=== PATIENT | female | born 1970 | race Hispanic/Latino ===

== ENCOUNTER → 2020-10-05 | Outpatient (CLI) | payer MEDICARE ==
[~2020-10-05] MED LIST: BISA5TAB12 PO; HYDR-4068 PO; PROM25TA7 PO
== END | disposition home or self-care (01) ==
LOC: RAH 09:27
PROVIDERS: ATTEND Family Medicine
DX: R05 Cough (principal)
CPT/HCPCS: 71046

== ENCOUNTER → 2020-10-16 | Outpatient (CLI) | payer OTHER | END | disposition home or self-care (01) | LOC: OIH 17:18 | PROVIDERS: ATTEND Family Medicine | DX: Z13.6 Encounter for screening for cardiovascular disorders (principal) | CPT/HCPCS: 75571 ==

== ENCOUNTER → 2021-08-17 | Outpatient (CLI) | payer OTHER | END | disposition home or self-care (01) | LOC: OIH 08:04 | PROVIDERS: ATTEND Family Medicine | DX: Z13.6 Encounter for screening for cardiovascular disorders (principal) | CPT/HCPCS: 75571 ==

== ENCOUNTER → 2021-08-22 | Outpatient (CLI) | payer MEDICARE | END | disposition home or self-care (01) | LOC: RAH 08:51 | PROVIDERS: ATTEND Family Medicine | DX: K21.9 Gastro-esophageal reflux disease without esophagitis (principal); Z98.84 Bariatric surgery status | CPT/HCPCS: 74240 ==

== ENCOUNTER → 2023-10-21 | Outpatient (CLI) | payer MEDICARE ==
[~2023-10-21] MED LIST changes: +BISA-151 PO; -BISA5TAB12 PO
== END | disposition home or self-care (01) ==
LOC: RAH 09:46
PROVIDERS: ATTEND Internal Medicine Gastroenterology
DX: K21.9 Gastro-esophageal reflux disease without esophagitis (principal); R10.13 Epigastric pain; Z98.890 Other specified postprocedural states
CPT/HCPCS: 74240

== ENCOUNTER 2024-01-14 08:05 | Day surgery (SDC) | payer MEDICARE ==
[~2024-01-14] VITALS: Ht 149.9 cm; Wt 81.6 kg
[2024-01-14] VITALS (15 sets, daily range): BP systolic 102–136; BP diastolic 67–83; PULSE 47–81; RESP 10–18
[~2024-01-14 08:05] MED LIST changes: +OMEP40CA21 PO; +PANT20TA18 PO
[2024-01-14] MEDS ORDERED: FLUT1BLS3 IH (08:44)
[2024-01-14] MEDS: 0.9%NACL 1000ML 1,000 ML IV ONE (08:51)
[2024-01-14] MEDS ORDERED: PROPOFOL 10 MG/ML 20ML VIAL IV ONE ×2 (10:16→10:22)
== END 2024-01-14 11:55 | disposition home or self-care (01) ==
LOC: DAH 08:05
PROVIDERS: ATTEND Surgery
DX: K21.00 Gastro-esophageal reflux disease with esophagitis, without bleeding (principal); K29.50 Unspecified chronic gastritis without bleeding; M79.7 Fibromyalgia; R10.13 Epigastric pain; K22.89 Other specified disease of esophagus; K44.9 Diaphragmatic hernia without obstruction or gangrene; E66.01 Morbid (severe) obesity due to excess calories; F41.9 Anxiety disorder, unspecified; Z68.34 Body mass index [BMI] 34.0-34.9, adult; K21.9 Gastro-esophageal reflux disease without esophagitis; Z86.010 Personal history of colon polyps; Z90.710 Acquired absence of both cervix and uterus; Z98.890 Other specified postprocedural states; Z98.84 Bariatric surgery status; Z98.0 Intestinal bypass and anastomosis status; Z79.899 Other long term (current) drug therapy
CPT/HCPCS: 43239; 82948 ×3; J7030 ×2; J2704 ×2; A4620; A4215 ×2; A4223; A4657; A4222; A4221; A4663; A4606; J3490

== ENCOUNTER 2024-08-25 05:49 | Observation (INO) | payer MEDICARE ==
[2024-08-22 14:35] LABS: BASOPHILS # (AUTO) 0.02 K/uL (0.00-0.20); BASOPHILS % (AUTO) 0.4 % (0.0-5.0); EOSINOPHILS # (AUTO) 0.05 K/uL (0.00-0.70); HEMATOCRIT 40.4 % (36-48); IMMATURE GRANULOCYTE ABSOLUTE 0.01 K/uL (0-1); LYMPHOCYTES # (AUTO) 0.8 K/uL (1.0-4.8); MEAN CORPUSCULAR HEMOGLOBIN 28.9 pg (27.0-33.0); MEAN CORPUSCULAR HGB CONC 33.9 g/dL (32.0-36.0); MEAN CORPUSCULAR VOLUME 85.2 fL (79-99); MONOCYTES # (AUTO) 0.4 K/uL (0.1-1.0); MONOCYTES % (AUTO) 7.3 % (3.0-13.0); NEUTROPHILS # (AUTO) 3.9 K/uL (1.8-7.7); NEUTROPHILS % (AUTO) 75.1 % (40.0-77.0); PLATELET COUNT (AUTO) 197 K/uL (130-400); RED BLOOD CELL COUNT(AUTO) 4.74 MIL/uL (4.00-5.50); WHITE BLOOD COUNT (AUTO) 5.2 K/uL (4.8-10.8)
[2024-08-22 14:50] LABS: INR <= 0.93 (0.85-1.15); PROTHROMBIN TIME 10.4 SEC (9.6-11.6)
[2024-08-22 14:51] LABS: PARTIAL THROMBOPLASTIN TIME 26.5 SEC (26.3-35.5)
[2024-08-22 14:52] LABS: CREATININE 0.7 mg/dL (0.5-1.0); POTASSIUM 4.1 mmol/L (3.5-5.1)
[2024-08-22 14:55] VITALS: BP 128/79; PULSE 79; RESP 14; TEMP 97.9
--- NOTE | 2024-08-22 15:14 | EKG ---
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
[2024-08-25] VITALS (33 sets, daily range): BP systolic 104–147; BP diastolic 55–82; PULSE 61–109; RESP 13–20; TEMP 96.9–98.6; O2SAT 95–96
[~2024-08-25] VITALS: Ht 149.9 cm; Wt 73.2 kg
[2024-08-25] MEDS: INDOCYANINE GREEN 25 MG VIAL IJ ONE
[~2024-08-25 05:49] MED LIST changes: -BISA-151 PO; +DICY20TA3 PO; +ESOM40CA66 PO; +FAMO40TA7 PO; +FLUT1BLS3 IH; +GLUCOSE PO; -HYDR-4068 PO; +IBUP-2070 PO; +LINA145C PO; -OMEP40CA21 PO; +ONDA-243 PO; -PANT20TA18 PO; +PHEN-308 PO; -PROM25TA7 PO; +SERT-439 PO; +SUCR1TAB2 PO; +TOPI25TA42 PO
[2024-08-25] MEDS: FAMOTIDINE 20MG VIAL IV ONE (07:12)
[2024-08-25] MEDS: acetaMINOPHEN 100 ML ONE (07:12)
[2024-08-25] MEDS ORDERED: ketaMINE 50MG/ML SYRINGE 50 MG/ML DISP.SYRIN ONE (07:16)
[2024-08-25] MEDS: IpraTROPium/alBUTERol SULFATE 3 ML SOLUTION IH ONE (07:19)
[2024-08-25] MEDS ORDERED: proPOFol 10 MG/ML 20ML VIAL IV ONE (07:25)
[2024-08-25] MEDS ORDERED: FENTanyl CITRate PF 50 MCG/1 ML 2ML VIAL ONE (07:25)
[2024-08-25] MEDS ORDERED: rocuRONium bROMide 10MG/1ML 5ML VL ONE (07:25)
[2024-08-25] MEDS ORDERED: LIDOCAINE PF 100MG/5ML (2%) SYRINGE 5ML ONE (07:25)
[2024-08-25] MEDS ORDERED: dexaMETHasone SOD PHOSPHATE 10MG/ML 1ML VIAL ONE (08:22)
[2024-08-25] MEDS ORDERED: ondanSETRON 4MG INJ ONE (08:22)
[2024-08-25] MEDS: ceFAZolin SODIUM 2 GM VIAL ONE (08:25)
[2024-08-25] MEDS ORDERED: phenylEPHRINE HCL 10 MG/ML 1ML VIAL IV ONE (08:27)
[2024-08-25] MEDS: BUPIvacaine/PF 0.5% 30ML VIAL ONE (08:40)
[2024-08-25] MEDS ORDERED: MIDAZOLAM HCL 1 MG/ML 2ML VIAL ONE (08:48)
[2024-08-25] MEDS ORDERED: GLYCOPYRROLATE 0.2 MG/ML 5 ML VIAL ONE (09:12)
[2024-08-25] MEDS ORDERED: NEOSTIGMINE METHYLSULFATE 1MG/ML IV ONE (09:12)
--- NOTE | 2024-08-25 10:15 | OP ---
Operative Note: DATE OF PROCEDURE: 08/25/24 SURGEON: RONDA NELSON MD TALENT BUYER: Gordo Nelson MD p.a. C ANESTHESIA: General and local ANESTHESIOLOGIST/SHIPPING LEAD: [facility] [place] team PREOPERATIVE DIAGNOSIS: Nausea, symptomatic hiatal hernia, gastric bypass anatomy POSTOPERATIVE DIAGNOSIS: As above. Nodular and shrunken appearing liver re quiring liver biopsy for further diagnosis. Extensive intra-abdominal adhesions requiring adhesiolysis for 1 hour prior to proceeding with the case. SYNOPSIS: Extensive lysis of adhesions, liver biopsy, hiatal hernia repair with mesh reinforcement performed without incident PROCEDURE: 1. Robotic assisted hiatal hernia repair with mesh reinforcement 2. Extensive lysis of adhesions greater than 1 hour not typical for this case 3. Core needle liver biopsy 4. EGD ESTIMATED BLOOD LOSS: Minimal, less than 30 cc INDICATIONS: As above DESCRIPTION OF PROCEDURE: After standard precautions and preparations were undertaken a Veress needle and optical trocar were used to enter the abdominal cavity. All other instruments were placed under direct vision. The robotic system was docked in the standard fashion. In order to clear space for all the trocars we had to lyse adhesions. The patient had diffuse intra-abdominal adhesions the required approximately 1 hour of lysis prior to proceeding with the remainder of the case. Patient also had a shrunken nodular appearing liver requiring liver biopsy for further diagnosis. The core needle liver biopsy was performed and monopolar cautery was used to create hemostasis. We eventually got to the main portion of the case which involved identification and repair of the hiatal hernia. We opened pars flaccida identifying the right juan m of the diaphragm. From there we are able to enter into the mediastinum through a nearly avascular plane. This dissection was carried circumferentially to mobilize the distal esophagus and the gastric pouch. We cleared the right and left crura of unwanted attachments down to the crossing fibers in the retroesophageal space. We performed hernia repair by suturing the right and left crura back in reapproximation with the care taken not to over tighten. This was then reinforced with a mesh placement. The mesh was cut into a horseshoe shape and placed as an overlay. It was sutured in place to prevent mesh migration and maximize tissue contact with the mesh. Throughout the case my partner was utilizing the EGD scope to verify appropriate anatomic landmarks including the GE junction. By the end of our dissection and hernia repair the GE junction was resting several cm below the hiatus in the peritoneal cavity without any tension. At the end of the case all instrument counts were verified as correct including needles and sponges. The patient tolerated the procedure well and was prepared for extubation and transferred to PACU in stable condition. RONDA NELSON MD Aug 25, 2024 10:15
--- NOTE | 2024-08-25 10:15 | PN ---
GENERAL SURGERY PROGRESS NOTE Date/Time Patient Seen: [ 08/25/2024, 1015] Problem List: [ ] Interval History: [Postop day 0. Pain tolerable with the p.r.n. medication. ] Current Medications Medications (Trade) Dose Ordered Sig/Polina Route Start Time Stop Time Status Last Admin Dose Admin Enoxaparin Sodium (Lovenox) 30 mg Q12H SQ 08/25/24 10:30 09/24/24 10:29 UNV Famotidine (Pepcid 20mg Vial) 20 mg BID IV 08/25/24 21:00 09/24/24 20:59 UNV Lactated Ringer's 1,000 ml @ 150 mls/hr Q6H40M IV 08/25/24 10:30 09/24/24 10:29 UNV Physical Examination: ABD: [Incisions clean, dry and intact, Dermabond and place] Vital Signs (last 8hr) Date Time Temp Pulse Resp B/P (MAP) Pulse Ox O2 Delivery O2 Flow Rate FiO2 08/25/24 07:19 66 18 08/25/24 06:40 97.0 61 18 131/76 98 Room Air 21 Laboratory: [ ] Chemistry Labs: Test 08/25/24 06:32 Range/Units Whole Blood Glucose 85 70-110 MG/DL Diagnostics / Radiology: [Copy/Paste Echos/Imaging Report here] Impression and Plan: [Postop day 0. Plan is for discharge home in the next day or two as long as patient tolerating p.o., ambulatory and pain under control. Discussed with the patient and family. They understand and agree. ] RONDA NELSON MD Aug 25, 2024 10:15
[2024-08-25] MEDS ORDERED: PROCHLORPERAZINE 10MG/2ML INJ IV PRN (10:30)
[2024-08-25] MEDS ORDERED: ondanSETRON 4MG INJ IVP PRN (10:30)
[2024-08-25] MEDS: ENOXAPARIN SODIUM 30 MG/0.3 ML SQ SCH (10:30)
[2024-08-25] MEDS: ondanSETRON 4MG INJ ONE ×2 (11:08→13:10)
[2024-08-25] MEDS: MEPERIDINE-PF 50 MG/ML SYG ONE (11:16)
[2024-08-25] MEDS ORDERED: SIMETHICONE 40 MG/0.6 ML ML PO PRN (11:30)
[2024-08-25] MEDS: SIMETHICONE 40 MG/0.6 ML ML ONE (11:46)
[2024-08-25] MEDS: ketOROlac 15MG/ML VIAL (15MG/ML) ONE (14:00)
[2024-08-25] MEDS: PROCHLORPERAZINE 10MG/2ML INJ ONE (14:01)
[2024-08-25] MEDS: LACTATED RINGERS 1000ML 1,000 ML IV SCH (14:28)
--- NOTE | 2024-08-25 15:52 | NUR ---
report given to [facility] nurse rm [id number] pt in no distress
--- NOTE | 2024-08-25 16:10 | NUR ---
arrival to unit patient alert and oriented x4, vitals stable, denies nausea at this time, pain rating 8/10 to abdomen, incision sites intact, no drainage. called RT for incentive spirometer
[2024-08-25] MEDS: hydroMORPHone 0.5 MG SYG (0.5MG/0.5ML) IVP PRN (16:37)
[2024-08-25] MEDS: FAMOTIDINE 20MG VIAL IV SCH (20:37)
[2024-08-26 03:32] VITALS: BP 118/83; PULSE 95; RESP 20; TEMP 97.7
[2024-08-26 08:00] VITALS: BP 113/61; PULSE 60; RESP 19; TEMP 97.5; O2SAT 95
[2024-08-26] MEDS: ketOROlac 15MG/ML VIAL (15MG/ML) IV PRN (08:19)
--- NOTE | 2024-08-26 10:32 | DS ---
Problems: (1) Diaphragmatic hernia without obstruction and without gangrene (2) Fatty (change of) liver, not elsewhere classified Discharge Summary Assessment The patient is a pleasant 55-year-old female status post robotic assisted hiatal hernia repair with extensive lysis of adhesions and a core needle liver biopsy. The patient is accompanied by spouse in the room present. The patient is awake alert and oriented x3 and resting comfortably in bed. The patient is in minimal distress. The patient endorses pain that is tolerable with p.r.n. medication. The abdomen is appropriately tender, incisions are clean and dry and well approximated with the Dermabond in place. Auscultation reveals regular bowel sounds. The patient has been ambulating, tolerating liquids well. Reports passing gas. Overall the patient is clinically stable and happy with the procedure. Hospital Course Postoperative day 1 We will continue to monitor and treat pain. GI/DVT prophylaxis recommended encouraged, incision care, hydration, activity and dietary restrictions dis cussed with the patient and family. You may resume home medications, advance to a full liquid diet. The plan is to discharge the patient home today and follow up outpatient in 7 days. Postoperative medications sent by [facility] office staff. ANGELO LOUIS Aug 26, 2024 10:32
[2024-08-26] MEDS: HYDROcod/acetaMINOPHEN 7.5/325 MG 15 ML UDCUP PO PRN (11:24)
[2024-08-26 12:00] VITALS: BP 139/68; PULSE 62; RESP 19; TEMP 97.8
--- NOTE | 2024-08-26 14:15 | NUR ---
Discharge Patient been home, all discharge instructions given to patient, all questions answered, no concerns at this time, aware medications sent to [facility] in [place].
--- NOTE | 2024-08-26 16:48 | NUR ---
DCP - Patient discharged. Attempted to do IA, patient already discharged. Notified CM. Addendum: 08/26/24 at 1649 by CHAS RIOS RN CM Amended: Links added.
== END 2024-08-26 14:45 | disposition home or self-care (01) ==
LOC: DAH 05:49 → INTOOBSV 05:50 → DAHIP 05:50 → 4AH 16:10
PROVIDERS: ADMIT Surgery; ATTEND Surgery
DX: K44.9 Diaphragmatic hernia without obstruction or gangrene (principal); K76.0 Fatty (change of) liver, not elsewhere classified; K66.0 Peritoneal adhesions (postprocedural) (postinfection); K21.9 Gastro-esophageal reflux disease without esophagitis; J44.9 Chronic obstructive pulmonary disease, unspecified; F41.9 Anxiety disorder, unspecified; G62.9 Polyneuropathy, unspecified; G47.33 Obstructive sleep apnea (adult) (pediatric); Z98.84 Bariatric surgery status; Z79.899 Other long term (current) drug therapy
CPT/HCPCS: 80048; 85025; 85610; 85730; 86850 ×2; 86900 ×2; 86901 ×2; 36415 ×2; 93005; 96374; 96376 ×2; 96375 ×2; 47379; 43282; 82948 ×3; 88313; 88307; 97161; 97116; 97530 ×2; 94640; 96372; A6260; G0378 ×6; A4223 ×2; A4600; A4663; A4215 ×2; J3490 ×6; J3010; J1100; J2003; J0780; J2250; J2704; J2405 ×3; J2710; J0665; J2175; J1885 ×2; J2371; J1171 ×3; J0690; A4649; C1781; A4930; A6251; A4222; A4221; A4216; J7030; J1650; 43235

== ENCOUNTER 2024-12-15 06:16 | Day surgery (SDC) | payer MEDICARE, MEDICAID ==
[~2024-12-15] VITALS: Ht 149.9 cm; Wt 65.3 kg
[2024-12-15] VITALS (10 sets, daily range): BP systolic 99–131; BP diastolic 65–77; PULSE 62–82; RESP 12–18; TEMP 96.8–98.1
[~2024-12-15 06:16] MED LIST changes: -PHEN-308 PO
[2024-12-15] MEDS ORDERED: ACET650S14 PO (06:52)
[2024-12-15] MEDS ORDERED: PHEN-308 PO (06:52)
[2024-12-15] MEDS: 0.9%NACL 1000ML 1,000 ML IV ONE (07:10)
[2024-12-15] MEDS ORDERED: LIDOCAINE HCL 1% 20 ML VIAL ONE (07:28)
[2024-12-15] MEDS ORDERED: proPOFol 10 MG/ML 20ML VIAL IV ONE (07:28)
--- NOTE | 2024-12-15 09:30 | NUR ---
D/C PT AND FAMILY GIVEN D/C INSTRUCTIONS. UNDERSTANDING VOICED. PT TAKEN OUT VIA W/C BY JESIKA HARRISON. PT IN NO DISTRESS
== END 2024-12-15 09:30 | disposition home or self-care (01) ==
LOC: DAH 06:16
PROVIDERS: ATTEND Surgery
DX: K30 Functional dyspepsia (principal); R11.0 Nausea; K44.9 Diaphragmatic hernia without obstruction or gangrene; K21.00 Gastro-esophageal reflux disease with esophagitis, without bleeding; K28.9 Gastrojejunal ulcer, unspecified as acute or chronic, without hemorrhage or perforation; K22.89 Other specified disease of esophagus; K59.04 Chronic idiopathic constipation; K91.89 Other postprocedural complications and disorders of digestive system; F41.9 Anxiety disorder, unspecified; K29.50 Unspecified chronic gastritis without bleeding; E66.01 Morbid (severe) obesity due to excess calories; Z98.84 Bariatric surgery status; Z79.899 Other long term (current) drug therapy; Z68.28 Body mass index [BMI] 28.0-28.9, adult; Z86.0100 Personal history of colon polyps, unspecified; Z98.890 Other specified postprocedural states; Z90.49 Acquired absence of other specified parts of digestive tract; Z98.891 History of uterine scar from previous surgery; Z90.710 Acquired absence of both cervix and uterus
CPT/HCPCS: 43239; J7030; J2704; A4620; A4215 ×2; A4223; A4222; A4221; A4663; A4606; J3490